=== PATIENT | female | born 1950 | race Caucasian/White ===

== ENCOUNTER 2017-10-07 15:43 | Inpatient (IN) | payer MEDICARE ==
[2017-10-07] MEDS ORDERED: Magnesium Sulfate 2 GM/100 ML BAG ONE (16:08)
[2017-10-07 16:10] LABS: #Eosinphils 0.1 thou/uL (0.0-0.7); #Lymphocytes 1.6 thou/uL (1.20-3.40); #Monocytes 0.6 thou/uL (0.11-0.59); #Neutrophils 6.3 thou/uL (1.40-6.50); %Basophils 0.4 % (0.0-1.0); %Eosinophils 0.9 % (0.0-10.0); %Lymphocytes 18.9 % (21.0-51.0); %Monocytes 6.8 % (0.0-10.0); Hemoglobin 13.9 g/dL (12.0-16.0); Mean Corpuscular HGB CONC 33.5 g/dL (32.0-36.0); Mean Corpuscular Hemoglobin 32.9 pg (27.0-31.0); Mean Corpuscular Volume 98.3 fl (81.0-99.0); Mean Platelet Volume 8.7 fL (7.4-10.4); Platelet Count 208 thou/uL (130-400); RBC Distribution Width 12.9 % (11.5-14.5); Red Blood Cell (RBC) Count 4.23 mill/uL (4.20-5.40); White Blood Cell (WBC) Count 8.6 thou/uL (4.8-10.8)
[2017-10-07] MEDS ORDERED: Diltiazem 125 MG/25 ML ONE (16:18)
--- NOTE | 2017-10-07 16:25 | RAD ---
AP VIEW CHEST: 10/07/17 HISTORY: Dyspnea. AP view chest is obtained on 10/07/17. Comparison made to previous exam from earlier in the day on 10/07/17. AP view chest demonstrates EKG leads seen over the chest. Cardiomegaly is seen. Pulmonary vascular co ngestion is seen. There is blunting of the left costophrenic angle compatible with a small left sided pleural effusion. IMPRESSION: Cardiomegaly and small left sided pleural effusion. POS: [facility]
[2017-10-07] MEDS ORDERED: Diltiazem HCl 125 MG, Admixture Fee 1 EACH in Sodium Chloride 0.9% 100 ML IVPB SCH (16:30)
[2017-10-07 16:32] LABS: ALT (SGPT) 39 U/L (8-55); AST (SGOT) 42 U/L (5-34); Alkaline Phosphatase 52 U/L (40-150); Anion Gap 13 mmol/L (10-20); BUN (Urea Nitrogen) 27 mg/dL (9.8-20.1); Bilirubin, Total 1.9 mg/dL (0.2-1.2); CK (CPK) 171 U/L (29-168); Calc. Creatinine Clearance 0 mL/min (70-130); Calcium 9.2 mg/dL (7.8-10.44); Carbon Dioxide 24 mmol/L (23-31); Chloride 107 mmol/L (98-107); Estimated GFR-MDRD 73; Globulin 2.2 g/dL (2.4-3.5); Glucose 123 mg/dL (80-115); Protein, Total 6.2 g/dL (6.0-8.3); Sodium 140 mmol/L (136-145)
[2017-10-07 16:37] LABS: CKMB 4.8 ng/mL (0-6.6); Troponin I Less than 0.010 ng/mL (< 0.028)
[2017-10-07 16:50] LABS: Free T4 (Free Thyroxine) 1.51 ng/dL (0.70-1.48); Thyroid Stimulating Hormone 1.9224 uIU/mL (0.35-4.94)
[2017-10-07 17:42] LABS: Bilirubin Negative (Negative); Blood, Urine Trace (Negative); Clarity CLEAR (Clear); Glucose, Urine (Dipstick) Negative (Negative); Leukocyte Negative (Negative); Nitrite Negative (Negative); Protein, Urine (Dipstick) 30 mg/dL (Neg-Trace); Specific Gravity, Urine 1.019 (1.002-1.036); Urobilinogen 0.2 mg/dL (0.2-1.0)
[2017-10-07 17:45] LABS: Bacteria/HPF None Seen HPF (None Seen); Hyaline Casts/LPF 0-3 HYALINE CAST LPF (0-3 Hyaline); Pathc Cast-AUWi Flag 0.72 (0-2.49); RBC/HPF 0-3 HPF (0-3); Squamous Epithelial 0-3 HPF (0-3); WBC/HPF 0-3 HPF (0-3)
[2017-10-07 17:56] LABS: Amphetamine Not Detected (NotDetected); Barbiturates Screen Not Detected (NotDetected); Benzodiazepine Screen Not Detected (NotDetected); Cocaine Metabolite Screen Not Detected (NotDetected); Medtox Control Line Valid? VALID (VALID); Medtox Reader # READER 4; Methadone Not Detected (NotDetected); Methamphetamine Not Detected (NotDetected); Opiate Screen Not Detected (NotDetected); Oxycodone Screen Not Detected (NotDetected); Phencyclidine (PCP) Not Detected (NotDetected); THC/Cannabinoid Screen Not Detected (NotDetected); Tricyclic Screen Not Detected (NotDetected)
[2017-10-07] MEDS ORDERED: Enoxaparin Sodium 80 MG/0.8 ML SYRINGE ONE (19:33)
[2017-10-07] MEDS ORDERED: HYDROcodone/Acetaminophen 10/325 mg Tablet PO PRN (19:59)
[2017-10-07] MEDS ORDERED: HYDROcodone/Acetaminophen 5/325 mg Tablet PO PRN (20:55)
[2017-10-07] MEDS ORDERED: Acetaminophen 325 MG TAB PO PRN (20:55)
[2017-10-07 21:06] VITALS: BMI 23.3
[2017-10-07] MEDS: Sodium Chloride 0.9% 1,000 ML IV SCH (22:00)
[2017-10-07] MEDS: Aspirin 81 mg Enteric Coated Tablet PO SCH (22:01)
[2017-10-07] MEDS: Famotidine 20 MG TAB PO SCH (22:01)
--- NOTE | 2017-10-08 01:54 | HP ---
DATE OF ADMISSION: 10/07/2017 CHIEF COMPLAINT: Shortness of breath. HISTORY OF PRESENT ILLNESS: This is a 67-year-old white female who has known history of COPD, histor y of chronic atrial fibrillation, history of hypothyroidism. She came into the hospital because over the past 2 days, she has been having shortness of breath on exertion and it spontaneously goes away. She came into the ER for further evaluation and she had an EKG done which was showing a heart rate of 122. It went up to 150, so the patient was given a Cardizem bolus again, but the heart rate remai price elevated. She denied having any chest pain, no nausea, no vomiting, no diarrhea, no abdominal pa in. She denies having any palpitations. She sees an confectionery maker in her area who has recently di d a blood work for hypothyroidism and today she got her blood work report was slightly elevated. Patient is seen in the ER today, she was alert and oriented, did not appear to be any acute distress. She was sitting on the bed with no acute distress at this time. PAST MEDICAL HISTORY: 1. COPD. 2. Childhood asthma. 3. Chronic atrial fibrillation. 4. Hypothyroidism. 5. Hypertension. 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 SOCIAL HISTORY: Patient is not a known smoker. She does drink alcohol occasionally. She had a Mar avtar yesterday, but was one glass. Otherwise, she lives on her own, has a maid lives with her. FAMILY HISTORY: No significant family history of coronary artery disease, but patient's family does have hypothyroidism runs in the family and hypertension, but otherwise no cancers. REVIEW OF SYSTEMS: All 12 systems are reviewed with the patient thoroughly and found to be negative at this time. The following complete review of systems was negative, unless otherwise mentioned in t he HPI or below: Constitutional: Weight loss or gain, sense of well-being, ability to conduct usual activities, exercise tolerance. Skin/Breast: Rash, itching, changes in hair growth or loss, nail c hanges, breast lumps, tenderness, swelling, nipple discharge. Eyes: Vision, double vision, tearing, blind spots, pain. ENT/Mouth: Headaches (location, time of onset, duration, precipitating factors) , vertigo, lightheadedness, injury. Vision, double vision, tearing, blind spots, pain, nose bleeding , colds, obstruction, discharge, dental difficulties, gingival bleeding, dentures, neck stiffness, pa in, tenderness, masses in thyroid or other areas. Cardiovascular: Precordial pain, substernal distr ess, palpitations, syncope, dyspnea on exertion, orthopnea, nocturnal paroxysmal dyspnea, edema, cyan osis, hypertension, heart murmurs, varicosities, phlebitis, claudication. Respiratory: Pain, shortn ess of breath, wheezing, stridor, cough, hemoptysis, fever or night sweats. Gastrointestinal: Poor appetite, dysphagia, indigestion, abdominal pain, heartburn, eructation, nausea, vomiting, hematemesi s, jaundice, constipation, or diarrhea, abnormal stools (naif-colored, tarry, bloody, greasy, foul sm elling), flatulence, hemorrhoids, recent changes in bowel habits. Genitourinary: Urgency, frequency , dysuria, nocturia, hematuria, polyuria, oliguria, unusual (or change in) color of urine, stones, he sitancy, change in size of stream, dribbling, acute retention or incontinence, libido, potency. Musc uloskeletal: Pain, swelling, redness or heat of muscles or joints, limitation, of motion, muscular w eakness, atrophy, cramps. Neurologic/Psychiatric: Convulsions, paralyses, tremor, incoordination, p arasthesias, difficulties with memory of speech, sensory or motor disturbances, or muscular coordinat ion (ataxia, tremor), emotional problems, anxiety, depression, previous psychiatric care, unusual per ceptions, hallucinations. Allergy/Immunologic: Skin rash, anemia, bleeding tendency, polydipsia, polyuria, intolerance to heat or cold. PHYSICAL EXAMINATION: VITAL SIGNS: Blood pressures of 130/88, heart rate is 120, respiratory rate is 18, saturations 98% o n room air. GENERAL: The patient is moderately built and moderately nourished. She does not appear to be in any acute distress. She was alert and oriented x3. HEENT: Atraumatic, normocephalic, PERRLA. Extraocular movements were intact. Oral mucosa is pink a nd moist. CARDIOVASCULAR: S1, S2 normal. No murmurs, rubs or gallops. LUNGS: Bilateral air entry was equal. No wheezing, no crackles. ABDOMEN: Soft, nontender, no guarding, no rebound tenderness. Bowel sounds normal. MUSCULOSKELETAL: No calf tenderness. No pedal edema, no joint tenderness, no joint swelling. SKIN: No cyanosis, no erythema, no rash, no pallor. NEUROLOGIC: Cranial nerve examination II-XII are intact. No focal deficits were noted. PSYCHIATRIC: No signs of suicidal ideation. No signs of kiara was noted. LABORATORY DATA: WBC is 8.6, hemoglobin 13.9, hematocrit is 41.6, platelets 208. Sodium is 140, pot assium 4.0, chloride is 107, bicarbonate is 24, BUN is 27, creatinine 0.78, blood glucose 123, free T 4 is slightly elevated to 1.51. ASSESSMENT AND PLAN: 1. Acute atrial fibrillation with rapid ventricular rate. 2. state. 3. History of chronic obstructive pulmonary disease, no exacerbation. 4. Moderate dehydration. 5. Hypertension. 6. Alcohol use. PLAN: 1. Plan is to admit this patient to telemetry and she will be continued on the Cardizem drip which s he has been started in the ER. ER physician consulted Dr. Steven who planned to see the patient in the morning. We will get a 2D echo in the morning. We will closely monitor this patient and she will a lso receive Lovenox dose 1 mg/kg b.i.d. 2. Patient has evidence of hypothyroidism which is pretty mild with mildly elevated T4. We will hol d off on the levothyroxine at this time and advised the patient to follow up with her confectionery maker reduce the dose. 3. Patient has a history of COPD, no evidence of any exacerbation. 4. Patient has a history of alcohol. She does drink alcohol every day, but she says on a limited qu antity. She does have some mildly elevated total bilirubin and AST 42, ALT 39, suggestive of alcohol ic liver disease. We will closely monitor for any alcohol withdrawals if needed. We will start the patient on thiamine. 5. DVT prophylaxis with Lovenox. I spent 75 minutes with this patient.
[2017-10-08 05:23] LABS: #Eosinphils 0.1 thou/uL (0.0-0.7); #Lymphocytes 1.5 thou/uL (1.20-3.40); #Monocytes 0.5 thou/uL (0.11-0.59); #Neutrophils 3.6 thou/uL (1.40-6.50); %Basophils 0.5 % (0.0-1.0); %Eosinophils 1.8 % (0.0-10.0); %Lymphocytes 26.9 % (21.0-51.0); %Monocytes 8.8 % (0.0-10.0); %Neutrophils 62.1 % (42.0-75.0); Hemoglobin 11.3 g/dL (12.0-16.0); Mean Corpuscular HGB CONC 32.2 g/dL (32.0-36.0); Mean Corpuscular Hemoglobin 31.8 pg (27.0-31.0); Mean Platelet Volume 8.5 fL (7.4-10.4); Platelet Count 153 thou/uL (130-400); RBC Distribution Width 12.9 % (11.5-14.5); Red Blood Cell (RBC) Count 3.56 mill/uL (4.20-5.40); White Blood Cell (WBC) Count 5.7 thou/uL (4.8-10.8)
[2017-10-08 05:37] LABS: Anion Gap 7 mmol/L (10-20); BUN (Urea Nitrogen) 20 mg/dL (9.8-20.1); Calc. Creatinine Clearance 78 mL/min (70-130); Calcium 8.1 mg/dL (7.8-10.44); Carbon Dioxide 27 mmol/L (23-31); Chloride 109 mmol/L (98-107); Estimated GFR-MDRD 81; Glucose 105 mg/dL (80-115); Potassium 3.5 mmol/L (3.5-5.1); Sodium 139 mmol/L (136-145)
[2017-10-08] MEDS: Spironolactone 25 MG TAB PO SCH (09:47)
[2017-10-08] MEDS: Folic Acid 1 MG TAB PO SCH (09:48)
[2017-10-08] MEDS: Amlodipine 10 MG TAB PO SCH (09:48)
[2017-10-08] MEDS: Allopurinol 100 MG TAB PO SCH (09:48)
[2017-10-08] MEDS: Famotidine 20 MG TAB PO SCH ×2 (09:48→21:28)
[2017-10-08] MEDS: Nebivolol HCl 5 MG TAB PO SCH (09:48)
[2017-10-08] MEDS ORDERED: Enoxaparin Sodium 60 MG/0.6 ML SYRINGE SC SCH (11:30)
[2017-10-08] MEDS ORDERED: Diltiazem HCl 125 MG, Admixture Fee 1 EACH in Sodium Chloride 0.9% 100 ML IVPB SCH (13:54)
[2017-10-08] MEDS: Sodium Chloride 0.9% 1,000 ML IV SCH (16:11)
--- NOTE | 2017-10-08 20:56 | CON ---
DATE OF CONSULTATION: 10/08/2017 PRIMARY CARE DOCTOR: Trav Royal M.D. PRIMARY LADLE REPAIRMAN: Dr. Jennifer Steven. REFERRING DOCTOR: Xavi Fabian M.D. REASON FOR CARDIOLOGY CONSULT: Atrial flutter with RVR and hypothyroidism. HISTORY OF PRESENT ILLNESS: Ms. Anne is a 67-year-old female with significant history o f COPD, high blood pressure and premature ventricular contraction of the high burden and also mitral valve regurgitation. The patient started having shortness of breath since the last week and the last couple of days, the patient's shortness of breath became very worsen and accompanied with cough and severe reflux. The patient started feeling more weak and she noticed that she had more fluid retenti on in her bilateral lower extremities, and she gained more than 10 pounds over the few days. The pat ient went to [facility] yesterday and her EKG revealed the patient is having atrial flutter with rapid ventricular response and the patient was transferred to the emergency department for the f urther evaluation and treatment. The patient has followed up with electrophysiology in 2015 for sameer ature ventricular contraction of the high burden and the patient was recommended to have ablation at this time. The patient continued to postpone at that time because she did not have any symptoms. To day, the patient continued having shortness of breath and mild air hunger when she lays flat and also mild fatigue. The patient denies dizziness, lightheadedness, or chest pain or discomfort in her karel st or fluttering or palpitations in her chest or any other cardiac complaints. The patient has echocardiogram done in April 2017, which shows EF 55%, moderate left atrium enlarg ement, moderate mitral valve regurgitation, mild to moderate pulmonary insufficiency and mild tricusp id regurgitation. The patient has a history of chronic COPD. The patient is to follow up with Dr. Israel Lewis. The patient had a stress test done in 2008, which shows normal EF. PAST MEDICAL HISTORY: 1. Hypertension. 2. Hypothyroidism. 3. Insomnia. 4. Mitral valve regurgitation. 5. Premature ventricular contraction with high burden. 6. Kidney stone. She is taking allopurinol to keep the uric acid lower. PAST SURGICAL HISTORY: Right hand fracture in 2012, right cataract surgery in 2016, squamous cell re moved from her mouth in 01/2017. FAMILY HISTORY: The patient's father has a significant history of hypertension and CVA. The patient 's mother has a history of Parkinson's and emphysema. The patient's sister has a history of hyperten rosendo. The patient's grandfather in the maternal side has a history of stroke. The patient's grandmo ther in the maternal side has history of emphysema and asthma. The patient's grandfather in the logan rnal side due to [place]. SOCIAL HISTORY: The patient continued to be keep active daily. She is single, but she has a roommat e with. She enjoyed one beer a day for 4 times a week. She does not smoke or illicit drugs. She qu it carbonate water a couple weeks ago due to severe acid reflux. She never smoked before. However, due to chain smoke of the parents, she had exposed to the second-hand smoking. ALLERGIES: She is allergic to SULFA and she is allergic to DOXYCYCLINE, which caused severe sensitiv ities. HOME MEDICATIONS: 1. Spironolactone 50 mg once a day. 2. Allopurinol 100 mg 1 tablet twice a day. 3. Aspirin 81 mg once a day. 4. Synthroid 88 mcg from Monday through Monday and Synthroid 100 mcg, Monday and Monday. 5. Glucosamine 1500 mg once a day. 6. Zyrtec 10 mg once a week. 7. Vitamin D2 of 50,000 once a week. 8. Animi-3 with Vitamin D 1 tablet twice a week. 9. Amlodipine 5 mg once a day. 10. Coreg 12.5 mg 1/2 tablet twice a day. 11. Singulair 10 mg once a day. 12. Prilosec once a day. REVIEW OF SYSTEMS: Complete review of systems otherwise mentioned in the HPI or below. Constitution al: She gained 10 pounds over the couple of days when she started having shortness of breath, but ne gative for sense of well being, ability to conduct usual activities. Skin: Rash, itching, breast santy mp, tenderness, swelling or nipple discharge. Eyes: Vision change, double vision, tearing, blind sp ots, pain. HEENT: Headache, vertigo, lightheadedness, nose bleeding, cold, obstruction, dental diff iculty, neck stiffness, pain, mass and tenderness in thyroid or other areas. Cardiovascular: Precor dial pain, substernal distress, nocturnal dyspnea, orthopnea, cyanosis. She noticed mild edema in th e bilateral lower extremities within the last couple of days. Respiratory: Positive for worsened sh ortness of breath, but negative for wheezing, stridor, cough, hemoptysis. Genitourinary: Poor appet ite, dysphagia, indigestion, abdominal pain, constipation, diarrhea, abnormal stool. Genitourinary: Urgency, frequency, dyspnea, nocturia, hematuria, polyuria, unusual color urine. Musculoskeletal: Pain, swelling, redness or heat of the muscle or joint. Neurologic: Conversion seizure, paralysis, tremor. Psychiatric: Emotional problem, anxiety, depression, previous psychiatric care. PHYSICAL EXAMINATION: VITAL SIGNS: Blood pressure 113/81, pulse is 110-140s with atrial fibrillation/atrial flutter, respi ratory rate is 16 with O2 sats 97% with room air, temperature 98.9. GENERAL: Well-developed, well-nourished without any acute distress. HEAD: Normocephalic, atraumatic. EYES: Extraocular muscle movement intact. ENT: Oral and nasal mucosa are moist without lesion. NECK: No JVD, supple and normal range of motion. LUNGS: Clear to auscultate bilaterally, but diminished at the bases. CARDIOVASCULAR: Irregularly irregular. Presence of murmur in the left mid sternal border. There ar e 2+ pulses in bilateral dorsal pedis, posterior tibial, and popliteal. There is no edema present at this time. ABDOMEN: Nondistended, soft and nontender or mass to palpate, and bowel sounds are present. MUSCULOSKELETAL: The patient able to move all extremities. SKIN: Warm and dry. No rash, lesion or bruise noted. NEUROLOGIC: Alert, oriented x4, nonfocal. PSYCHIATRIC: Mood and affect are normal. IMAGING: EKG: A 12-lead EKG in the ER shows atrial fibrillation and atrial flutter, heart rates goi ng up to the 150 this moment and telemetry record showing atrial fibrillation with heart rate of 100 to 140 with and a chest x-ray shows cardiomegaly and a small left side pleural effusion. LABORATORY DATA: WBC 5.7, hemoglobin 11.3, hematocrit of 35.2, platelets 153. Chemistry: Sodium 13 9, potassium 3.5, BUN 20, creatinine 0.72 and TSH 1.9224, free T4 1.51. ASSESSMENT AND PLAN: 1. Atrial fibrillation/atrial flutter with rapid ventricular response with significant symptoms of s hortness of breath, chronic fatigue and edema in the lower extremities. We like to order electrophys iologist consult today and possible ablation tomorrow. The patient is going to be n.p.o. after midni ght tonight for possible ablation. We might like to start diltiazem if patient not able to tolerate increase in dose of the diltiazem for heart rate management. 2. Hypertension. Her blood pressures have been stable with current medication. We like to continue and adjust as appropriate. 3. Chronic obstructive pulmonary disease. The patient's respiratory status is stable with room air. 4. Mitral valve regurgitation. Echo in 2017 shows some moderate mitral valve regurgitation. At thi s time, the patient is not going to have echocardiogram, but we like to continue due to the patient's symptoms at this moment. 5. Hypothyroidism. The patient's TSH within normal range; however, patient's free T4 is elevated to day, which shows hypothyroidism. Synthroid is on hold at this moment, which is managed by patient's primary care doctor. Thank you very much for allowing the Cardiology Service to participate in the care of this patient. We will follow along with the patient care team and make further recommendations as appropriate.
[2017-10-08] MEDS: Enoxaparin Sodium 60 MG/0.6 ML SYRINGE SC SCH (21:27)
[2017-10-08] MEDS: Aspirin 81 mg Enteric Coated Tablet PO SCH (21:28)
[2017-10-09] MEDS ORDERED: ISOVUE-370 76%-LOCM 1 ML ONE (06:43)
--- NOTE | 2017-10-09 08:09 | ADD-CON ---
This is an addendum to the note already dictated by the nurse practitioner, Brionna. DATE OF CONSULTATION: 10/08/2017 DATE OF ADMISSION: 10/07/2017 INDICATION FOR CONSULTATION: A 67-year-old female with episodes of intermittent atrial fibrillation/ flutter. She, for the last several days, has not been feeling well. She has been complaining of quinn e shortness of breath and some lower extremity edema. She notes some palpitations, rapid heart rate. She presented to the emergency room and was found to be in, what appeared to be, atrial fibrillatio n or flutter with a rapid heart rate. She was placed on IV diltiazem, and the rate is under much bet ter control at this time. She had no complaints of chest pain. She had no EKG changes that would in dicate ischemia. She has had a history of this in the past and has actually been seen by Electrophys iology for evaluation. Previously, we opted to treat her medically, but at this time, it may be jessa moore to proceed now with the electrophysiological evaluation again and consider an ablation of her a trial fibrillation/flutter. She had no chest pain otherwise. She does have some shortness of breath and has not been feeling well. HPI is, otherwise, unremarkable. For her past medical history, social history, family history, and review of systems, please refer to the notes already dictated by the nurse practitioner. PHYSICAL EXAMINATION: GENERAL: Reveals a well-developed, well-nourished female, who is in no acute distress at this time. VITAL SIGNS: Blood pressure 113/81, heart rate is anywhere between 70s-116 and shows atrial fibrilla tion in the monitor at this time. Earlier appeared to be flutter. O2 saturation 92%. She is afebri le, respiratory rate 16. HEENT EXAM: Shows head to be normocephalic, atraumatic. Carotid pulses are present. There are no b ruits. CHEST: Clear to auscultation without rales, rhonchi, or wheezing. CARDIOVASCULAR: Exam reveals an irregularly, irregular rhythm, sometimes tachycardic, otherwise ther e are no significant murmurs, heaves, thrills, bruits, or rubs. ABDOMEN: Soft and nontender. EXTREMITIES: Show no clubbing or cyanosis. She has minimal left lower extremity ankle edema. NEUROLOGIC: The patient appears to be intact. SKIN: Warm and dry. IMPRESSION: Atrial fibrillation, rapid ventricular response, which appear to be actually atrial flut ter also at times. We will ask poultry and fish butcher to see her for possible ablation. Otherwise, we will continue her medications at this time, which include diltiazem. We will add Lovenox to decrease the risk of embolic phenomenon since she has been most likely in this atrial fibrillation for at ava a week now. We will continue her aspirin 81 mg a day. We will continue with Bystolic as well as her other home medications, may be able to decrease the dose of the amlodipine at this time since the blood pressure is well controlled on decreased dose, but she has been taking the amlodipine and appe ars to be stable at this dose. We would be more than happy to continue to follow the patient with yo u, but we will request electrophysiological consultation.
--- NOTE | 2017-10-09 10:13 | PDOC.CTH ---
Cardiology Progress Note - Subjective Pt. seen and eval. no new complaints but still SOB. No other new symptoms or complaints. - Objective Vital Signs Temp Pulse Resp BP Pulse Ox 10/09/17 07:30 97.9 F 104 H 21 H 93 L 10/09/17 04:00 97.9 F 55 L 22 H 102/61 10/09/17 00:00 125 H 18 96/68 98 Weight 148 lb 10/08/17 10/09/17 10/10/17 06:59 06:59 06:59 Intake Total 1275 Output Total 800 Balance 475 - Physical Examination General/Neuro: alert & oriented x3 Neck: no JVD present Lungs: CTA, unlabored respirations Heart: other: (irreg./irreg.) Abdomen: NT/ND, soft - Labs Result Diagrams: 10/08/17 05:09 10/08/17 05:09 Troponin/CKMB CK-MB (CK-2) 4.8 ng/mL (0-6.6) 10/07/17 15:55 Troponin I Less than 0.010 ng/mL (< 0.028) 10/07/17 15:55 - Assessment/Plan 1. Afib. with RVR. Discussed with EP. Advise TEENA/cardioversion. Pt. has been on ASA for years and lovenox since admission. 2. COPD: asthma as a child. Sees pulmonology. Still feels SOB. May ask pulmonary to see her here. Could start nebulizer treatments. 3. HTN: reasonably well controlled. 4. GERD, may be contributing to cough and SOB. I have exp[lained the TEENA procedure and riskd to the pt. plan for this AM.
[2017-10-09] MEDS ORDERED: PROPOFOL 200 MG/20 ML VIAL ONE (10:43)
[2017-10-09] MEDS ORDERED: Lidocaine 1% PF 5 ML VIAL ONE ×2 (10:43→10:52)
[2017-10-09] MEDS ORDERED: PROPOFOL 0 ML ONE (10:51)
[2017-10-09] MEDS ORDERED: Flecainide 50 MG TAB PO SCH ×2 (11:00→12:00)
[2017-10-09] MEDS ORDERED: PROPOFOL 20 ML ONE (11:06)
[2017-10-09] MEDS: Amlodipine 10 MG TAB PO SCH (13:18)
[2017-10-09] MEDS: Folic Acid 1 MG TAB PO SCH (13:18)
[2017-10-09] MEDS: Enoxaparin Sodium 60 MG/0.6 ML SYRINGE SC SCH ×2 (13:18→20:45)
[2017-10-09] MEDS: Famotidine 20 MG TAB PO SCH ×2 (13:18→20:47)
[2017-10-09] MEDS: Allopurinol 100 MG TAB PO SCH (13:18)
[2017-10-09] MEDS: Spironolactone 25 MG TAB PO SCH (13:19)
[2017-10-09] MEDS: Nebivolol HCl 5 MG TAB PO SCH (13:20)
--- NOTE | 2017-10-09 13:53 | PDOC.PN ---
- Subjective Encounter Start Date: 10/08/17 Encounter Start Time: 10:00 Patient is seen today, alert and oriented. She continuos to have SOB, No chest pain. - Objective Resuscitation Status: Resuscitation Status FULL:Full Resuscitation MAR Reviewed: Yes Vital Signs & Weight: Vital Signs (12 hours) Temp Pulse Pulse Resp BP BP Pulse Ox 10/09/17 08:02 89 115/88 10/09/17 07:30 97.9 F 104 H 21 H 93 L 10/09/17 04:00 97.9 F 55 L 22 H 102/61 Weight Weight 148 lb I&O: 10/08/17 10/09/17 10/10/17 06:59 06:59 06:59 Intake Total 1275 Output Total 800 Balance 475 Result Diagrams: 10/08/17 05:09 10/08/17 05:09 Radiology Reviewed by me: Yes Phys Exam - Physical Examination HEENT: PERRLA, moist MMs Neck: no nodes, no JVD Respiratory: no wheezing, no rales Cardiovascular: RRR, no significant murmur Gastrointestinal: soft, non-tender Musculoskeletal: no edema, pulses present Lymphatic: no nodes Psychiatric: normal affect Dx/Plan (1) Atrial fibrillation with controlled ventricular response Code(s): I48.91 - UNSPECIFIED ATRIAL FIBRILLATION Status: Acute Comment: PT is on Cardizem Drip Now 5mg/min, rate is controlled on the Drip, No anticoagulation (2) COPD (chronic obstructive pulmonary disease) Status: Acute Comment: No Exacerbation, Noted. Will continue to monitor. (3) HTN (hypertension) Code(s): I10 - ESSENTIAL (PRIMARY) HYPERTENSION Status: Acute Comment: Will continue to Monitor. Stable. (4) SOB (shortness of breath) on exertion Code(s): R06.02 - SHORTNESS OF BREATH Status: Acute Comment: Will mOnitor Closley likely from RVR, will check for PE if persistant. - Plan cont current plan of care, plan discussed w/ family, PT/OT, social science research assistant, respiratory therapy, incentive spirometry * . Review of Systems - Review of Systems Eyes: negative: Pain, Vision Change, Conjunctivae Inflammation, Eyelid Inflammation, Redness, Other ENT: negative: Ear Pain, Ear Discharge, Nose Pain, Nose Discharge, Nose Congestion, Mouth Pain, Mouth Swelling, Throat Pain, Throat Swelling, Other Respiratory: Shortness of Breath. negative: Cough, Dry, Hemoptysis, SOB with Excertion, Pleuritic Pain, Sputum, Wheezing Cardiovascular: negative: chest pain, palpitations, orthopnea, paroxysmal nocturnal dyspnea, edema, light headedness, other Genitourinary: negative: Dysuria, Frequency, Incontinence, Hematuria, Retention , Other Musculoskeletal: negative: Neck Pain, Shoulder Pain, Arm Pain, Back Pain, Hand Pain, Leg Pain, Foot Pain, Other - Medications/Allergies Allergies/Adverse Reactions: Allergies Allergy/AdvReac Type Severity Reaction Status Date / Time Sulfa (Sulfonamide Allergy Verified 10/19/12 18:56 Antibiotics) Medications: Current Medications Acetaminophen (Tylenol) 650 mg PO Q4H PRN PRN Reason: Headache/Fever or Pain Hydrocodone Bitart/Acetaminophen ([place] 10/325) 1 tab PO Q4HR PRN PRN Reason: Pain Hydrocodone Bitart/Acetaminophen ([place] 5/325) 1 tab PO Q4H PRN PRN Reason: Moderate Pain (4-6) Allopurinol (Zyloprim) 200 mg PO DAILY [facility] Last Admin: 10/09/17 13:18 Dose: Not Given Amlodipine Besylate (Norvasc) 10 mg PO DAILY [facility] Last Admin: 10/09/17 13:18 Dose: Not Given Aspirin (Ecotrin) 81 mg PO HS [facility] Last Admin: 10/08/17 21:28 Dose: 81 mg Enoxaparin Sodium (Lovenox) 60 mg SC 0900,2100 [facility] Last Admin: 10/09/17 13:18 Dose: Not Given Famotidine (Pepcid) 20 mg PO BID [facility] Last Admin: 10/09/17 13:18 Dose: Not Given Flecainide Acetate (Tambocor) 50 mg PO Q12HR [facility] Folic Acid (Folvite) 1 mg PO DAILY [facility] Last Admin: 10/09/17 13:18 Dose: Not Given Nebivolol (Bystolic) 5 mg PO DAILY [facility] Sodium Chloride (Flush - Normal Saline) 10 ml IVF Q12HR [facility] Last Admin: 10/08/17 21:28 Dose: Not Given Sodium Chloride (Flush - Normal Saline) 10 ml IVF PRN PRN PRN Reason: Saline Flush Spironolactone (Aldactone) 25 mg PO DAILY [facility] Last Admin: 10/09/17 13:19 Dose: Not Given Thiamine HCl (Thiamine) 100 mg PO DAILY [facility] Last Admin: 10/09/17 13:19 Dose: Not Given
--- NOTE | 2017-10-09 14:06 | PDOC.PN ---
- Subjective Encounter Start Date: 10/09/17 Encounter Start Time: 11:00 Patient is seen today, Cardioogy plan for TEENA and Cardioverstion. Alert and oriented. - Objective Resuscitation Status: Resuscitation Status FULL:Full Resuscitation MAR Reviewed: Yes Vital Signs & Weight: Vital Signs (12 hours) Temp Pulse Pulse Resp BP BP Pulse Ox 10/09/17 08:02 89 115/88 10/09/17 07:30 97.9 F 104 H 21 H 93 L 10/09/17 04:00 97.9 F 55 L 22 H 102/61 Weight Weight 148 lb I&O: 10/08/17 10/09/17 10/10/17 06:59 06:59 06:59 Intake Total 1275 Output Total 800 Balance 475 Result Diagrams: 10/08/17 05:09 10/08/17 05:09 Radiology Reviewed by me: Yes Phys Exam - Physical Examination HEENT: PERRLA, moist MMs Neck: no nodes, no JVD Respiratory: no wheezing, no rales Cardiovascular: RRR, no significant murmur Gastrointestinal: soft, non-tender Musculoskeletal: no edema Neurological: non-focal Lymphatic: no nodes Psychiatric: normal affect, A&O x 3 Dx/Plan (1) Atrial fibrillation with controlled ventricular response Code(s): I48.91 - UNSPECIFIED ATRIAL FIBRILLATION Status: Acute Comment: PT is on Cardizem Drip Now 5mg/min, rate is controlled on the Drip, No anticoagulation, planned for TEENA today and followed by Cardiovertion. (2) COPD (chronic obstructive pulmonary disease) Status: Acute Comment: No Exacerbation, Noted. Will continue to monitor. (3) HTN (hypertension) Code(s): I10 - ESSENTIAL (PRIMARY) HYPERTENSION Status: Acute Comment: Will continue to Monitor. Stable. (4) SOB (shortness of breath) on exertion Code(s): R06.02 - SHORTNESS OF BREATH Status: Acute Comment: Will mOnitor Closley likely from RVR, will check for PE if persistant. - Plan cont current plan of care, plan discussed w/ family, PT/OT, respiratory therapy , incentive spirometry, DVT proph w/lovenox * . Review of Systems - Review of Systems Eyes: negative: Pain, Vision Change, Conjunctivae Inflammation, Eyelid Inflammation, Redness, Other ENT: negative: Ear Pain, Ear Discharge, Nose Pain, Nose Discharge, Nose Congestion, Mouth Pain, Mouth Swelling, Throat Pain, Throat Swelling, Other Respiratory: negative: Cough, Dry, Shortness of Breath, Hemoptysis, SOB with Excertion, Pleuritic Pain, Sputum, Wheezing Cardiovascular: negative: chest pain, palpitations, orthopnea, paroxysmal nocturnal dyspnea, edema, light headedness, other Gastrointestinal: negative: Nausea, Vomiting, Abdominal Pain, Diarrhea, Constipation, Melena, Hematochezia, Other Musculoskeletal: negative: Neck Pain, Shoulder Pain, Arm Pain, Back Pain, Hand Pain, Leg Pain, Foot Pain, Other - Medications/Allergies Allergies/Adverse Reactions: Allergies Allergy/AdvReac Type Severity Reaction Status Date / Time Sulfa (Sulfonamide Allergy Verified 10/19/12 18:56 Antibiotics) Medications: Current Medications Acetaminophen (Tylenol) 650 mg PO Q4H PRN PRN Reason: Headache/Fever or Pain Hydrocodone Bitart/Acetaminophen ([place] 10/325) 1 tab PO Q4HR PRN PRN Reason: Pain Hydrocodone Bitart/Acetaminophen ([place] 5/325) 1 tab PO Q4H PRN PRN Reason: Moderate Pain (4-6) Allopurinol (Zyloprim) 200 mg PO DAILY [facility] Last Admin: 10/09/17 13:18 Dose: Not Given Amlodipine Besylate (Norvasc) 10 mg PO DAILY [facility] Last Admin: 10/09/17 13:18 Dose: Not Given Aspirin (Ecotrin) 81 mg PO HS [facility] Last Admin: 10/08/17 21:28 Dose: 81 mg Enoxaparin Sodium (Lovenox) 60 mg SC 0900,2100 [facility] Last Admin: 10/09/17 13:18 Dose: Not Given Famotidine (Pepcid) 20 mg PO BID [facility] Last Admin: 10/09/17 13:18 Dose: Not Given Flecainide Acetate (Tambocor) 50 mg PO Q12HR [facility] Folic Acid (Folvite) 1 mg PO DAILY [facility] Last Admin: 10/09/17 13:18 Dose: Not Given Nebivolol (Bystolic) 5 mg PO DAILY [facility] Sodium Chloride (Flush - Normal Saline) 10 ml IVF Q12HR [facility] Last Admin: 10/08/17 21:28 Dose: Not Given Sodium Chloride (Flush - Normal Saline) 10 ml IVF PRN PRN PRN Reason: Saline Flush Spironolactone (Aldactone) 25 mg PO DAILY [facility] Last Admin: 10/09/17 13:19 Dose: Not Given Thiamine HCl (Thiamine) 100 mg PO DAILY [facility] Last Admin: 10/09/17 13:19 Dose: Not Given
--- NOTE | 2017-10-09 14:24 | CON ---
DATE OF CONSULTATION: 10/09/2017 REASON FOR CONSULTATION: This is an electrophysiology consultation report. REFERRING PHYSICIAN: Dr. Steven I am seeing Ms. Anne at our [facility] telemetry floor as an electrophysiology economics consultant. Her problems are: 1. Newly found persisting atrial fibrillation. A. Rapid ventricular rate, now controlled with Cardizem. 2. History of mitral valve regurgitation. 3. Prior history of hypertension. 4. History of hypothyroidism. 5. History of frequent PVCs. ALLERGIES: SULFA and DOXYCYCLINE. MEDICATIONS AT HOME: Spironolactone, allopurinol, aspirin, Synthroid, glucosamine, Zyrtec b.i.d., vitamin D2, vitamin E, vitamin D, amlodipine 5 mg once a day, Coreg 12.5 mg 1/2 tablet twice a day, Singulair 10, Prilosec once a day. SUBJECTIVE: Ms. Anne was presenting with shortness of breath. She came to the ER and she was found to be in atrial fibrillation/flutter with rapid rates. She also noted some coughing which has worsened recently. She had mild lower extremity edema. She might have gained about 10 pounds over the last couple of days. Her symptoms not improved after admission with rate control. I was consulted for further management of her atrial fibrillation. REVIEW OF SYSTEMS: The rest of 12-point system otherwise unremarkable. No acute gastrointestinal, musculoskeletal, ear, nose, throat neuropsychiatric or genitourinary system complaints appreciated. PAST MEDICAL HISTORY: As above. SOCIAL HISTORY: The patient denies smoking, ETOH or drug use. FAMILY HISTORY: Noncontributory. OBJECTIVE: VITAL SIGNS: Blood pressure is 115/88, heart rate 104, respiration is 21, temperature 97.9 degrees Fahrenheit. GENERAL: Alert and oriented woman in no apparent distress. NECK: Supple. Jugular veins not distended. CHEST: Coarse without crackles. CARDIOVASCULAR: Heart sounds are irregularly irregular. S1 is variable, 1-6 holosystolic murmur is heard. No gallop appreciated. PMI is nonpalpable. ABDOMEN: Benign. Bowel sounds positive. EXTREMITIES: Lower extremity edema, no clubbing or cyanosis. LABORATORY DATA: White count 5.7, hemoglobin 9.3, platelet count is 153. Sodium 139, potassium 3.5, BUN is 20, creatinine 0.72. The TSH is 1.9-2. The troponin I is less than 0.. The chest x-ray at presentation showed cardiomegaly with small left-sided pleural effusion. The EKG reveals atrial fibrillation with rapid rates initially. Telemetry strips reviewed reveals no consent atrial flutter apparent, but variable atrial flutter/coarse fibrillation is seen throughout. ASSESSMENT AND PLAN: Ms. Anne is a pleasant 67-year-old woman with frequent ventricular and atrial ectopy in the past who has been seen by Dr. Montero in our practice a couple of years ago. At that time no sustained atrial fibrillation was documented. Now, she is persisting in atrial fibrillation. She had associated dyspnea and now she requires IV diltiazem. We discussed the nature of atrial fibrillation and potential treatment option. Eventually she will need anticoagulation even though FRANKLIN score is relatively low at 2, hence gender and age. I detailed the potential treatment options including cardioversion and antiarrhythmic agents as for ablation therapy as well in the future. She understands and will plan to perform a cardioversion with Dr. Steven. We also discussed pros and cons of a transesophageal echocardiogram. PLAN: 1. Cardioversion possible TEENA. Continue anticoagulation and diltiazem nfor rate control. 2. Consider antiarrhythmic agent, especially if recurrent atrial fibrillation is seen. 3. Outpatient followup for consideration of an ablation therapy. NATID
[2017-10-09] MEDS: Flecainide 50 MG TAB PO SCH (20:47)
[2017-10-09] MEDS: Aspirin 81 mg Enteric Coated Tablet PO SCH (20:47)
--- NOTE | 2017-10-09 21:22 | CT ---
CT ANGIOGRAM OF CHEST WITH IV CONTRAST AND 3D MIP RECONSTRUCTIONS: Date: 10/09/17 PROVIDED CLINICAL HISTORY: Shortness of breath. FINDINGS: There is no evidence for central or segmental pulmonary embolus. There is not sufficient contrast mat erial within the system arterial circulation for evaluation. The heart appears enlarged, primarily on the basis of left atrial and left ventricular enlargement. There are bilateral pleural effusions, moderate to large. There is bibasilar consolidation, left grea ter than right. The airway appears patent and of normal caliber. There is no evidence for pneumothora x. The visualized portions of the upper abdomen demonstrate no acute abnormality. Small bilateral kia al calculi and circumscribed hepatic hypodensities incompletely characterized on this examination but demonstrating an appearance typical for cysts noted. The osseous structures demonstrate no concerning lytic or blastic lesions. IMPRESSION: 1. No evidence for central or segmental pulmonary embolus. 2. Bibasilar lung consolidation may reflect aspiration pneumonitis or pneumonia. 3. Bilateral moderate to large pleural effusions. 4. Other findings as above. POS: [facility]
--- NOTE | 2017-10-09 22:02 | OP ---
ELECTRICAL CARDIOVERSION: This is a 67-year-old female with atrial fibrillation. She was advised to undergo a transesophageal e chocardiogram and electrocardioversion of atrial fibrillation. She was taken to the recovery area whe re she underwent short acting propofol. The patient then developed bronchospasm and had decreased O2 saturations as low as in the 60s with coughing. We were unable to do the transesophageal echocardiogr am. We then did a transthoracic echocardiogram. This did visualize the left atrial appendage, as wel l as left atrium, and we did not see any obvious clots or thrombus in the left atrial appendage. She had a flow of more than 5 meters per second in the left atrial appendage and it was felt to be safe to go ahead and proceed with electrical cardioversion while the patient was still sedated and using p ropofol. She underwent one attempt at 200 joules and was successfully converted back to normal sinus rhythm with occasional PACs and PVCs with a heart rate in the 80s. She tolerated the procedure well o therwise and there were no difficulty or complications. IMPRESSION: Atrial fibrillation, successfully converted back to normal sinus rhythm at one attempt at 200 joules.
--- NOTE | 2017-10-09 22:09 | CON ---
DATE OF CONSULTATION: 10/09/2017 SERVICE: Pulmonary Medicine. REASON FOR CONSULTATION: Respiratory failure. HISTORY OF PRESENT ILLNESS: The patient is a 67-year-old white female with past medical history significant for cough. It has been present for several years. She sees Dr. Roderick Phillips in the outpatient setting. She previously failed empiric therapy for her cough. She was treated for allergies. Never made a difference in her cough. She was ultimately lost to follow up. She did pulmonary function studies at 1-2 times. She was recommended to try an inhaler , but she never felt short of breath, wheeze, she did not feel the need to use it. 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 She denies any wheezing, fevers, chills, nausea or vomiting. Roughly 3 months ago, the patient had a friend who suggested that she treats and acid reflux symptoms and her cough essentially went away by 90%. Her cough then started coming back roughly 4 days prior to admission. It was also associated with shortness of breath, which was a new feature for her. Ultimately, she was found to have a tachyarrhythmia and was subsequently sent to the Emergency Department and admitted. She underwent a TEENA this morning. After sedation was initiated, the patient had a significant coughing fit. It was fairly violent. It was associated with a low blood pressure and hypoxemia. As such, the TEENA was aborted. The patient did undergo a cardioversion; however. Initially with successful, but based on what I hear, she is going back into fibrillation. She denies any shortness of breath, nausea, vomiting, fevers or chills. PAST MEDICAL HISTORY: 1. Atrial fibrillation. 2. Hypertension. 3. Hypothyroidism. 4. Childhood history of asthma that she grew out at the age of 6 and has never required any medication since. 5. Chronic obstructive pulmonary disease, possible, not currently on therapy because she is asymptomatic at baseline. 6. Gastroesophageal reflux disease. PAST SURGICAL HISTORY: 1. 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 2. Cardioversion. SOCIAL HISTORY: She had secondhand exposure. Both of her parents smoked when she was growing. She is a lifelong nonsmoker than a brief episode of marijuana when she was in her a teenager. She denies any illicit drugs. She never abuse any IV drugs. She rarely uses any alcohol. She has no exposure to chemicals, dust, asbestos or tuberculosis. FAMILY HISTORY: Noncontributory. ALLERGIES: SULFA. HOME MEDICATIONS: List of her inpatient medications were reviewed. A couple small updates were made REVIEW OF SYSTEMS: General, head, ears, eyes, nose, throat, cardiovascular, respiratory, GI, , musculoskeletal, neurologic and skin is negative except as mentioned in the HPI. PHYSICAL EXAMINATION: VITAL SIGNS: Afebrile, pulse 104, blood pressure 102/61, respirations 21, saturation 93% on room air. GENERAL: The patient is awake and alert, in no apparent distress. LUNGS: Decreased air entry. There is a slightly prolonged expiratory phase. I hear some very subtle dependent crackles. That being said, she is really not moving enough air to appreciate loud adventitious sounds. I do not appreciate rhonchi or wheezing presently. HEART: Normal rate. Irregular. ABDOMEN: Soft, nontender, nondistended. Bowel sounds are positive. MUSCULOSKELETAL: No cyanosis or clubbing. There is no pitting in the bilateral lower extremities. NEUROLOGIC: Grossly nonfocal. LABORATORY DATA: WBC 5.7, hemoglobin 11.3, platelets 153,000. Neutrophil count is 62%. Basic metabolic profile is unremarkable, T4 1.5, TSH 1.9. Cardiac enzymes are unremarkable. Total bilirubin 1.9. Liver function studies are otherwise essentially unremarkable. Urinalysis is unremarkable. Urine drug screen is negative. IMAGING: X-ray demonstrates an impressive cardiomegaly. She has got a small left-sided pleural effusion. Lungs are slightly hyperexpanded. There is a widened sotero angle, suggestive of left atrial enlargement and/or subcarinal lymphadenopathy. The pulmonary vessels are prominent. ASSESSMENT: 1. Atrial fibrillation with rapid ventricular response, status post ablation with recurrence of atrial fibrillation. 2. Chronic obstructive pulmonary disease, suspected. 3. Gastroesophageal reflux disease. 4. Chronic cough. 5. Obstructive sleep apnea, suspected DISCUSSION AND PLAN: We will give the patient 1 DuoNeb. After that, we will provide them on a p.r.n. basis. She already has an appointment scheduled with her elephant keeper, Dr. Roderick Phillips on 10/25/2017. I have encouraged her to keep that appointment. We discussed acid reflux precautions. We also talked about how this can contribute to her cough. I have directed her to discuss looking into sleep apnea with her elephant keeper. They will determine together whether or not it be most appropriate to pursue long-acting medication at that appointment, but previous attempts at using it, did not provide any useful symptom control. Bilirubin is elevated. I will check a repeat bilirubin tomorrow as well as check INR looking to see whether or not the synthetic function of her liver is acceptable. For the time being, I will continue to follow along with this patient. 70 minutes have been devoted to this patient in various activities. I personally reviewed all imaging studies and laboratory data noted within this document. For fifty percent of this time, I was interacting with the patient at the bedside or coordinating care with the care team. For the remainder of the time I was immediately available to the patient in the hospital unit. JAIRO
[2017-10-10] MEDS ORDERED: Diltiazem HCl 125 MG, Admixture Fee 1 EACH in Sodium Chloride 0.9% 100 ML IVPB SCH (05:15)
[2017-10-10 05:24] LABS: INR-International Normal Ratio 1.1; Prothrombin Time 14.2 SEC (12.0-14.7)
[2017-10-10 05:30] LABS: ALT (SGPT) 31 U/L (8-55); AST (SGOT) 27 U/L (5-34); Albumin 3.7 g/dL (3.4-4.8); Alkaline Phosphatase 45 U/L (40-150); Bilirubin, Direct 0.6 mg/dL (0.1-0.3); Bilirubin, Total 1.8 mg/dL (0.2-1.2); Protein, Total 5.6 g/dL (6.0-8.3)
[2017-10-10] MEDS: Allopurinol 100 MG TAB PO SCH (09:00)
[2017-10-10] MEDS: Flecainide 50 MG TAB PO SCH (09:00)
[2017-10-10] MEDS: Folic Acid 1 MG TAB PO SCH (09:01)
[2017-10-10] MEDS: Nebivolol HCl 5 MG TAB PO SCH (09:01)
[2017-10-10] MEDS: Amlodipine 10 MG TAB PO SCH (09:01)
[2017-10-10] MEDS: Spironolactone 25 MG TAB PO SCH (09:01)
[2017-10-10] MEDS: Famotidine 20 MG TAB PO SCH ×2 (09:01→20:18)
[2017-10-10] MEDS: Enoxaparin Sodium 60 MG/0.6 ML SYRINGE SC SCH ×2 (09:02→20:18)
[2017-10-10] MEDS ORDERED: Amlodipine 10 MG TAB PO SCH (10:29)
[2017-10-10] MEDS ORDERED: Potassium Chloride 20 MEQ TAB PO SCH (10:45)
[2017-10-10] MEDS ORDERED: Amlodipine 5 MG TAB PO SCH (10:45)
[2017-10-10] MEDS ORDERED: Furosemide 20 MG/2 ML VIAL SLOW IVP SCH (10:45)
--- NOTE | 2017-10-10 12:51 | PRG ---
DATE OF SERVICE: 10/10/2017 SERVICE: Pulmonary Medicine INTERVAL HISTORY: The patient is doing okay from a respiratory standpoint. Roughly 30 minutes after I saw her yesterday, she started developing a funny sensation in her belly again. She had increasin g hypoxemic respiratory failure. She was placed on 2 liters nasal cannula. This morning, she was se nt for a CT of the chest. She has no set specific complaints of nausea, vomiting, fevers or chills. As soon as she got her oxygen, her difficulty breathing melted away almost immediately. PHYSICAL EXAMINATION: VITAL SIGNS: Afebrile, pulse 119, blood pressure 109/89, respirations 16, saturation 98% on 2 liters nasal cannula. GENERAL: The patient is awake, alert, in no apparent distress. LUNGS: Decent air entry with a slightly prolonged expiratory phase. Dependent crackles are present. No wheezing or rhonchi are present. HEART: Tachycardic. Irregular. ABDOMEN: Soft, nontender, nondistended. Bowel sounds are positive. MUSCULOSKELETAL: No cyanosis or clubbing. There is no pitting in the bilateral lower extremities. NEUROLOGIC: Grossly nonfocal. LABORATORY DATA: INR 1.1. Total bilirubin 1.8, most of which is indirect. BNP 1897, TSH 1.9. IMAGING: CTA of the chest demonstrates no evidence of a pulmonary embolism. There is extensive grou nd glass opacifications that are centrally located. There is also some subtle findings consistent wi th interstitial edema. There are also bilateral pleural effusions. Massive 4 chamber dilation is id entified. The RV, however, seems to be the most preserved. ASSESSMENT: 1. Acute hypoxic respiratory failure. 2. Atrial fibrillation with rapid ventricular response, status post cardioversion with return to atr ial fibrillation. 3. Chronic obstructive pulmonary disease, suspected. 4. Acute on chronic diastolic heart failure. 5. Gastroesophageal reflux disease. 6. Obstructive sleep apnea, suspected. PLAN: We will give her a dose of Lasix. Pulmonary Critical Care will continue to follow along since she is having increasing respiratory difficulties. The patient is being planned for an ablation mov ing forward. Ultimately, when she leaves the hospital, she will need to follow up with her pulmonolo gist to discuss having a sleep study performed.
--- NOTE | 2017-10-10 14:31 | PDOC.PN ---
- Subjective Encounter Start Date: 10/10/17 Encounter Start Time: 11:00 Patient is seen today, alert and oriented. Contoinuos to have SOB, She was cardioverted but converted back to Afib today. - Objective Resuscitation Status: Resuscitation Status FULL:Full Resuscitation MAR Reviewed: Yes Vital Signs & Weight: Vital Signs (12 hours) Temp Pulse Resp BP BP BP Pulse Ox 10/10/17 11:20 98.0 F 96 20 105/72 97 10/10/17 09:01 119 H 116/79 10/10/17 08:40 97.8 F 119 H 16 98 10/10/17 07:20 97.8 F 95 16 109/89 98 10/10/17 04:00 98.3 F 111 H 18 116/78 98 Weight Weight 146 lb I&O: 10/09/17 10/10/17 10/11/17 06:59 06:59 06:59 Intake Total 480 340 Balance 480 340 Result Diagrams: 10/08/17 05:09 10/08/17 05:09 Radiology Reviewed by me: Yes Phys Exam - Physical Examination HEENT: PERRLA, moist MMs Neck: no nodes, no JVD Respiratory: wheezing present Cardiovascular: no significant murmur, irregular Gastrointestinal: soft, non-tender Musculoskeletal: no edema, pulses present Neurological: non-focal, normal sensation Lymphatic: no nodes Psychiatric: normal affect, A&O x 3 Dx/Plan (1) Acute exacerbation of CHF (congestive heart failure) Code(s): I50.9 - HEART FAILURE, UNSPECIFIED Status: Acute Comment: PT will be Started on IV lasix 20mg IV BID, will wait for Echo to determine EF, elevated BNp. (2) Atrial fibrillation with controlled ventricular response Code(s): I48.91 - UNSPECIFIED ATRIAL FIBRILLATION Status: Acute Comment: PT is on Cardizem Drip Now 5mg/min, rate is controlled on the Drip, Failed Cardiovertion, Now in Afib again. (3) COPD (chronic obstructive pulmonary disease) Status: Acute Comment: No Exacerbation, Noted. Will continue to monitor. (4) HTN (hypertension) Code(s): I10 - ESSENTIAL (PRIMARY) HYPERTENSION Status: Acute Comment: Will continue to Monitor. Stable. (5) SOB (shortness of breath) on exertion Code(s): R06.02 - SHORTNESS OF BREATH Status: Acute Comment: Will mOnitor Closley likely from RVR, PE is ruled out. - Plan cont current plan of care, plan discussed w/ family, continue antibiotics, PT/OT , respiratory therapy, incentive spirometry, DVT proph w/lovenox * . Review of Systems - Review of Systems Eyes: negative: Pain, Vision Change, Conjunctivae Inflammation, Eyelid Inflammation, Redness, Other ENT: negative: Ear Pain, Ear Discharge, Nose Pain, Nose Discharge, Nose Congestion, Mouth Pain, Mouth Swelling, Throat Pain, Throat Swelling, Other Respiratory: Cough, Shortness of Breath, SOB with Excertion, Wheezing Cardiovascular: negative: chest pain, palpitations, orthopnea, paroxysmal nocturnal dyspnea, edema, light headedness, other Gastrointestinal: negative: Nausea, Vomiting, Abdominal Pain, Diarrhea, Constipation, Melena, Hematochezia, Other Genitourinary: negative: Dysuria, Frequency, Incontinence, Hematuria, Retention , Other Musculoskeletal: negative: Neck Pain, Shoulder Pain, Arm Pain, Back Pain, Hand Pain, Leg Pain, Foot Pain, Other - Medications/Allergies Allergies/Adverse Reactions: Allergies Allergy/AdvReac Type Severity Reaction Status Date / Time Sulfa (Sulfonamide Allergy Verified 10/19/12 18:56 Antibiotics) Medications: Current Medications Acetaminophen (Tylenol) 650 mg PO Q4H PRN PRN Reason: Headache/Fever or Pain Hydrocodone Bitart/Acetaminophen ([place] 10/325) 1 tab PO Q4HR PRN PRN Reason: Pain Hydrocodone Bitart/Acetaminophen ([place] 5/325) 1 tab PO Q4H PRN PRN Reason: Moderate Pain (4-6) Albuterol/Ipratropium (Duoneb) 3 ml NEB [id number] PRN PRN Reason: SOB &/or Wheezing Allopurinol (Zyloprim) 200 mg PO DAILY [facility] Last Admin: 10/10/17 09:00 Dose: 200 mg Amlodipine Besylate (Norvasc) 5 mg PO DAILY [facility] Aspirin (Ecotrin) 81 mg PO HS [facility] Last Admin: 10/09/17 20:47 Dose: 81 mg Enoxaparin Sodium (Lovenox) 60 mg SC 0900,2100 [facility] Last Admin: 10/10/17 09:02 Dose: 60 mg Famotidine (Pepcid) 20 mg PO BID [facility] Last Admin: 10/10/17 09:01 Dose: 20 mg Flecainide Acetate (Tambocor) 50 mg PO Q12HR [facility] Last Admin: 10/10/17 09:00 Dose: 50 mg Folic Acid (Folvite) 1 mg PO DAILY [facility] Last Admin: 10/10/17 09:01 Dose: 1 mg Furosemide (Lasix) 20 mg SLOW IVP 0600,1400 [facility] Diltiazem HCl 125 mg/Miscellaneous Medication 1 each/ Sodium Chloride 125 mls @ 10 mls/hr IVPB INF [facility] PRN Reason: Protocol Last Admin: 10/10/17 05:46 Dose: 125 mls Nebivolol (Bystolic) 5 mg PO DAILY [facility] Last Admin: 10/10/17 09:01 Dose: 5 mg Sodium Chloride (Flush - Normal Saline) 10 ml IVF Q12HR [facility] Last Admin: 10/10/17 08:57 Dose: Not Given Sodium Chloride (Flush - Normal Saline) 10 ml IVF PRN PRN PRN Reason: Saline Flush Spironolactone (Aldactone) 25 mg PO DAILY [facility] Last Admin: 10/10/17 09:01 Dose: 25 mg Thiamine HCl (Thiamine) 100 mg PO DAILY [facility] Last Admin: 10/10/17 09:01 Dose: 100 mg
--- NOTE | 2017-10-10 14:58 | PDOC.CTH ---
Cardiology Progress Note - Subjective The pt seen and examined. No overnight events. Complains of SOB possible due to fluid overload. Cont. chronic fatigue. - Objective Vital Signs Temp Pulse Resp BP BP BP Pulse Ox 10/10/17 11:20 98.0 F 96 20 105/72 97 10/10/17 09:01 119 H 116/79 10/10/17 08:40 97.8 F 119 H 16 98 10/10/17 07:20 97.8 F 95 16 109/89 98 10/10/17 04:00 98.3 F 111 H 18 116/78 98 Weight 146 lb 10/09/17 10/10/17 10/11/17 06:59 06:59 06:59 Intake Total 480 340 Balance 480 340 - Physical Examination General/Neuro: alert & oriented x3 Neck: no JVD present Lungs: other: (coases and diminished at bases) Heart: other: (irregular) Abdomen: soft Extremities: other: (BLE edema) - Telemetry Telemetry Rhythm: AFib - Labs Result Diagrams: 10/08/17 05:09 10/08/17 05:09 Troponin/CKMB CK-MB (CK-2) 4.8 ng/mL (0-6.6) 10/07/17 15:55 Troponin I Less than 0.010 ng/mL (< 0.028) 10/07/17 15:55 - Assessment/Plan 1. Afib. with RVR with S/p TEENA/cardioversion - back to Afib this AM. On Diltiazem 10mg/h, ASA and lovenox since admission. Request for Dr Rose to re- eval the pt for further tx plan. 2. Acute CHF - mod BLE edema since this admission; BNP > 1800 today. Start Lasix 20mg IV BID by PCP from today. TTE was ordered today and the result is pending at this moment. 3. COPD: asthma as a child. Sees pulmonology. Still feels SOB. May ask pulmonary to see her here. Could start nebulizer treatments. 3. HTN: reasonably well controlled. 4. GERD, may be contributing to cough and SOB. MAR reviewed Review of Systems - Review of Systems Constitutional: reports: see HPI EENTM: reports: no symptoms reported Respiratory: reports: see HPI Cardiac (ROS): reports: no symptoms reported ABD/GI: reports: no symptoms reported : reports: no symptoms reported
[2017-10-10] MEDS: Furosemide 20 MG/2 ML VIAL SLOW IVP SCH (16:04)
[2017-10-10] MEDS: Aspirin 81 mg Enteric Coated Tablet PO SCH (20:18)
--- NOTE | 2017-10-10 23:48 | EKG ---
Test Reason : Blood Pressure : / mmHG Vent. Rate : 106 BPM Atrial Rate : 344 BPM P-R Int : 000 ms QRS Dur : 094 ms QT Int : 340 ms P-R-T Axes : 107 098 102 degrees QTc Int : 451 ms Suspect arm lead reversal, interpretation assumes no reversal Atrial flutter with variable A-V block with premature ventricular or aberrantly conducted complexes Rightward axis Pulmonary disease pattern Abnormal ECG When compared with ECG of 07-OCT-2017 18:59, (Unconfirmed) No significant change was found Confirmed by IRAM SAHU, SShayne ([id number]) on 10/10/2017 11:48:19 PM Referred By: ZECHARIAH Confirmed By:DR. Richard WALDEN MD
[2017-10-11] MEDS: Furosemide 20 MG/2 ML VIAL SLOW IVP SCH ×2 (05:48→16:05)
[2017-10-11 07:20] LABS: #Basophils 0.1 thou/uL (0.0-0.2); #Eosinphils 0.1 thou/uL (0.0-0.7); #Lymphocytes 1.4 thou/uL (1.20-3.40); #Monocytes 0.5 thou/uL (0.11-0.59); #Neutrophils 4.6 thou/uL (1.40-6.50); %Eosinophils 1.8 % (0.0-10.0); %Lymphocytes 20.9 % (21.0-51.0); %Monocytes 7.8 % (0.0-10.0); %Neutrophils 68.6 % (42.0-75.0); Hemoglobin 13.7 g/dL (12.0-16.0); Mean Corpuscular HGB CONC 33.2 g/dL (32.0-36.0); Mean Corpuscular Hemoglobin 33.3 pg (27.0-31.0); Mean Platelet Volume 8.9 fL (7.4-10.4); Platelet Count 173 thou/uL (130-400); RBC Distribution Width 12.9 % (11.5-14.5); Red Blood Cell (RBC) Count 4.12 mill/uL (4.20-5.40); White Blood Cell (WBC) Count 6.7 thou/uL (4.8-10.8)
[2017-10-11 07:43] LABS: Anion Gap 11 mmol/L (10-20); BUN (Urea Nitrogen) 13 mg/dL (9.8-20.1); Calc. Creatinine Clearance 66 mL/min (70-130); Calcium 9.1 mg/dL (7.8-10.44); Carbon Dioxide 33 mmol/L (23-31); Chloride 100 mmol/L (98-107); Estimated GFR-MDRD 67; Glucose 103 mg/dL (80-115); Potassium 3.6 mmol/L (3.5-5.1); Sodium 140 mmol/L (136-145)
[2017-10-11] MEDS: Allopurinol 100 MG TAB PO SCH (08:06)
[2017-10-11] MEDS: Enoxaparin Sodium 60 MG/0.6 ML SYRINGE SC SCH ×2 (08:06→20:59)
[2017-10-11] MEDS: Folic Acid 1 MG TAB PO SCH (08:07)
[2017-10-11] MEDS: Spironolactone 25 MG TAB PO SCH (08:07)
[2017-10-11] MEDS: Famotidine 20 MG TAB PO SCH ×2 (08:07→20:59)
[2017-10-11] MEDS: Nebivolol HCl 5 MG TAB PO SCH (08:07)
--- NOTE | 2017-10-11 08:22 | PRG ---
DATE OF SERVICE: 10/10/2017 SUBJECTIVE: Ms. Anne is doing well. She underwent cardioversion yesterday with TEENA. She initial ly went back into a sinus rhythm but unfortunately has since gone into atrial flutter with controlled ventricular rate where she states today. Overall, she reports feeling okay. She does have some mikey rtness of breath, some mild swelling in her legs, but otherwise does not have any new cardiac concern s or complaints today. She is having an echocardiogram performed today. OBJECTIVE: VITAL SIGNS: Temperature 98.0 degrees Fahrenheit, pulse 92, blood pressure 98/71, respirations 20, a nd 97% saturation on 2 liters nasal cannula. GENERAL: The patient is alert and oriented, in no acute distress. NECK: Supple without jugular venous distention. LUNGS: Coarse throughout and slightly diminished at the bases, but largely without wheezes, crackles , or rhonchi. HEART: Rate is irregular. PMI is nondisplaced. EXTREMITIES: Warm and dry to touch without clubbing or cyanosis, but with 1+ edema noted bilaterally to lower extremities. ABDOMEN: Soft and nontender without palpable masses. NEUROLOGIC: Grossly intact and nonfocal. TELEMETRY: Initially, patient was found to be in atrial fibrillation with variable ventricular rate. However, overnight patient appears to have organized into atrial flutter, possibly typical with rat es somewhat controlled in the 80-90 beats per minute range. However, sometimes reaching up to 120 be ats per minute. LABORATORY DATA: No new lab work or serology was drawn or completed today. ASSESSMENT AND PLAN: 1. Newly diagnosed persisting atrial arrhythmias including atrial fibrillation and multiple atrial f lutter circuits. Previously on Cardizem for the RVR. Now rates are better controlled, but blood pre ssure is somewhat low. 2. Shortness of breath, possibly fluid overload or heart failure. 3. History of mitral valve regurgitation. 4. CHADS-VASc score of 2 for gender and age. RECOMMENDATIONS: Ms. Anne appears to be doing fairly well, but continues to struggle with shortne ss of breath and weakness. She underwent attempted TEENA yesterday; however, TEENA was unable to be comp leted prior to cardioversion. Initially she did sustain a normal sinus rhythm and was started on fle cainide last night, organizing her atrial fibrillation into an atrial flutter. There is an echocardi ogram done today, but report is not yet available. Patient has some questionable COPD, but no histor y of tobacco use. Currently, she is on flecainide for antiarrhythmic therapy; however, we now see at rial fibrillation as well as multiple flutter circuits and she may have some heart failure as well. She may require amiodarone for antiarrhythmic therapy. Once she is stabilized medically, we have dis cussed with her the possibility of undergoing ablation for atrial fibrillation and atrial flutter sim ultaneously. In the meantime, we will continue to follow throughout her hospitalization and assist h er with arrhythmia management or any additional needs if they arise, as we await the results from the echocardiogram. Thank you for allowing us to participate in the care of this patient.
[2017-10-11] MEDS ORDERED: Potassium Chloride 20 MEQ TAB PO SCH (08:45)
[2017-10-11] MEDS ORDERED: Amlodipine 5 MG TAB PO SCH ×2 (09:00)
[2017-10-11] MEDS ORDERED: Amiodarone In Dextrose 200 ML IVPB SCH (09:00)
[2017-10-11] MEDS ORDERED: Amiodarone HCl 450 MG, Admixture Fee 1 EACH in Dextrose 5% in Water 250 ML IVPB SCH (09:15)
[2017-10-11] MEDS ORDERED: Amiodarone HCl 150 MG, Admixture Fee 1 EACH in Dextrose 5% in Water 100 ML IVPB SCH (09:15)
--- NOTE | 2017-10-11 10:45 | PQF ---
CLINICAL DOCUMENTATION IMPROVEMENT CLARIFICATION FORM: ICD-10 Updated PLEASE DO AN ADDENDUM TO THE PROGRESS NOTE WITH ANY DOCUMENTATION UPDATES OR ADDITIONS AND CARRY THROUGH TO DC SUMMARY. THANK YOU. DATE: 10/11 ATTN: DR. Jaret PULIDO Please exercise your independent, professional judgment in responding to the clarification form. Clinical indicators are provided on the bottom of this form for your review. Diagnosis: ACUTE ON CHRONIC DIASTOLIC CHF Present on Admission (POA): [ x ] Yes [ ] No [ ] Unable to determine Diagnosis: ACUTE HYPOXIC RESPIRATORY FAILURE Present on Admission (POA): [ ] Yes [ ] No [ x ] Unable to determine CLINICAL INDICATORS - SIGNS / SYMPTOMS / LABS ER PHYSICIAN DOCUMENTATION 10/07: SHORTNESS OF BREATH INTERMITTENT X3 DAYS 10/07 CXR: PULMONARY VASCULAR CONGESTION IS SEEN; SMALL PLEURAL EFFUSIONS EP CONSULT 10/09: CXR W/SMALL L SIDED PLEURAL EFFUSION ATTENDING PN 10/09: SOB ON EXERTION - WILL MONITOR CLOSELY- LIKELY FROM RVR, WILL CHECK FOR PE CT CHEST/THORAX: BIBASILAR LUNG CONSOLIDATION MAY REFLECT ASPIRATION PNA OR PNA ; BILATERAL MODERATE TO LARGE PLEURAL EFFUSION; NO PE PULMONOLOGY PN 10/10: ACUTE HYPOXIC RESPIRATORY FAILURE; ACUTE ON CHRONIC DIASTOLIC CHF - GIVE LASIX ATTENDING PN 10/10: ACUTE EXACERBATION OF CHF, UNSPECIFIED, ELEVATED BNP ECHO: EF 35-40%, L ATRIUM SEVERELY DILATED, L PLEURAL EFFUSION RISK FACTORS: AFLUTTER W/RVR L PLEURAL EFFUSION ELEVATED BNP (1897, 10/10) SHORTNESS OF BREATH ON ADMIT PERIPHERAL EDEMA 1+ ON ADMIT TREATMENT: CARDIOLOGY CONSULT PULMONOLOGY CONSULT SUPPLEMENTAL OXYGEN IV LASIX (10/10 - PRESENT) ECHO THANK YOU! Yazmin (This form is maintained as a part of the permanent medical record) 2014 [employer]. All Rights Reserved Yazmin Murdock RN, BSN [email or web address] Office: [phone] [facility]
--- NOTE | 2017-10-11 10:56 | PDOC.CTH ---
<Brionna Bustamante - Last Filed: 10/11/17 10:54> Cardiology Progress Note - Subjective The pt seen and examined. No overnight events. No cardiac complaints. She cont. SOB, but no longer having BLE edema. Cont. chronic fatigue. Explained her Echo result and discussed current and future tx plans with the pt. She voiced understanding. - Objective Vital Signs Temp Pulse Resp BP Pulse Ox 10/11/17 08:07 111 H 10/11/17 07:38 97.7 F 111 H 16 127/90 96 10/11/17 04:33 98.7 F 116 H 20 115/72 95 10/11/17 00:00 97.8 F 104 H 22 H 108/70 97 Weight 143 lb 10/10/17 10/11/17 10/12/17 06:59 06:59 06:59 Intake Total 480 1000 Output Total 3250 Balance 480 -2250 - Physical Examination General/Neuro: alert & oriented x3 Neck: no JVD present Lungs: other: (coarses and diminished at bases) Heart: other: (irregular) Abdomen: soft Extremities: other: (no Edema) - Telemetry Telemetry Rhythm: Afib HR 90-100s - Labs Result Diagrams: 10/11/17 07:10 10/11/17 07:10 Troponin/CKMB CK-MB (CK-2) 4.8 ng/mL (0-6.6) 10/07/17 15:55 Troponin I Less than 0.010 ng/mL (< 0.028) 10/07/17 15:55 - Assessment/Plan 1. Afib. with RVR with S/p TEENA/cardioversion - back to Afib/Aflutter with RVR on 10/10/17. Start Amiodarone drip from this AM. cont. to monitor 2. Acute CHF - no more BLE edema with Lasix IV BID and spironolactone. Start lisinopril 2.5mg daily. May start BBlocker when her VS is stable. 3. Severe MR - Possible MVR as outpt if her condition is stable. 4. COPD/Asthma - asthma as a child. Sees pulmonology. 3. HTN - Stop Norvasc and changes to Lisinopril 2.5mg daily for HTN and CHF management. 4. GERD - may be contributing to cough and SOB. Stable at this time. MAR reviewed * Echo on 10/10/17 showed EF 35-40%, severe dilated RV, severe dilated LA, normal RA, mild TR, Lt plural effusion, small pericardial effusion, and severe MR. Possible MVR as outpt. Review of Systems - Review of Systems Constitutional: reports: see HPI EENTM: reports: no symptoms reported Respiratory: reports: see HPI Cardiac (ROS): reports: no symptoms reported ABD/GI: reports: no symptoms reported : reports: no symptoms reported Musculoskeletal: reports: no symptoms reported <Darrion Steven - Last Filed: 10/11/17 17:56> Cardiology Progress Note - Objective Vital Signs Temp Pulse Resp BP Pulse Ox 10/11/17 15:25 97.6 F 86 16 90/62 94 L 10/11/17 11:43 97.8 F 91 14 101/68 97 10/11/17 11:27 111 H 10/11/17 08:07 111 H 10/11/17 08:00 97.7 F 111 H 16 96 10/11/17 07:38 97.7 F 111 H 16 127/90 96 Weight 143 lb 10/10/17 10/11/17 10/12/17 06:59 06:59 06:59 Intake Total 480 1000 Output Total 3250 Balance 480 -2250 - Labs Result Diagrams: 10/11/17 07:10 10/11/17 07:10 Troponin/CKMB CK-MB (CK-2) 4.8 ng/mL (0-6.6) 10/07/17 15:55 Troponin I Less than 0.010 ng/mL (< 0.028) 10/07/17 15:55 - Assessment/Plan Pt. was seen and eval. by me. i agree with the assessment by the SUSPENSION CORD TIER. Appreciate the help from EP. I spoke with in [place] and he agrees to accept the pt. in transfer to [facility] for MV repair or replacement. The MV will likely need to be addressed inorder to deal with the atrial fibrillation.
[2017-10-11 11:22] LABS: ALT (SGPT) 40 U/L (8-55); AST (SGOT) 39 U/L (5-34); Albumin 3.8 g/dL (3.4-4.8); Alkaline Phosphatase 45 U/L (40-150); Bilirubin, Direct 0.6 mg/dL (0.1-0.3); Bilirubin, Total 1.5 mg/dL (0.2-1.2); Magnesium 1.9 mg/dL (1.6-2.6); Protein, Total 5.9 g/dL (6.0-8.3)
[2017-10-11] MEDS ORDERED: Lisinopril 2.5 MG TAB PO SCH (11:30)
--- NOTE | 2017-10-11 11:50 | PDOC.PN ---
- Subjective Encounter Start Date: 10/11/17 Encounter Start Time: 08:20 Subjective: no c/o palp allthough her heart rate is around 140 -: no chest pain or sob - Objective Resuscitation Status: Resuscitation Status FULL:Full Resuscitation MAR Reviewed: Yes Vital Signs & Weight: Vital Signs (12 hours) Temp Pulse Resp BP Pulse Ox 10/11/17 11:43 97.8 F 91 14 101/68 97 10/11/17 11:27 111 H 10/11/17 08:07 111 H 10/11/17 08:00 97.7 F 111 H 16 96 10/11/17 07:38 97.7 F 111 H 16 127/90 96 10/11/17 04:33 98.7 F 116 H 20 115/72 95 10/11/17 00:00 97.8 F 104 H 22 H 108/70 97 Weight Weight 143 lb I&O: 10/10/17 10/11/17 10/12/17 06:59 06:59 06:59 Intake Total 480 1000 Output Total 3250 Balance 480 -2250 Result Diagrams: 10/11/17 07:10 10/11/17 07:10 Phys Exam - Physical Examination HEENT: PERRLA, moist MMs Neck: no JVD, supple Respiratory: no wheezing, no rales Cardiovascular: no significant murmur, irregular Gastrointestinal: soft, no distention, positive bowel sounds Musculoskeletal: no edema, pulses present Neurological: non-focal, moves all 4 limbs Psychiatric: normal affect, A&O x 3 Dx/Plan (1) Afib Code(s): I48.91 - UNSPECIFIED ATRIAL FIBRILLATION Status: Acute Qualifiers: Atrial fibrillation type: persistent Qualified Code(s): I48.1 - Persistent atrial fibrillation (2) Acute exacerbation of CHF (congestive heart failure) Code(s): I50.9 - HEART FAILURE, UNSPECIFIED Status: Acute Qualifiers: Heart failure type: systolic Qualified Code(s): I50.23 - Acute on chronic systolic (congestive) heart failure Comment: ef of 35% (3) COPD (chronic obstructive pulmonary disease) Status: Chronic (4) HTN (hypertension) Code(s): I10 - ESSENTIAL (PRIMARY) HYPERTENSION Status: Chronic Qualifiers: Hypertension type: essential hypertension Qualified Code(s): I10 - Essential (primary) hypertension - Plan failed cardioversion with afib with rvr, started on amiodarone today -: on lasix 20mg iv q12h, asp, bystolic, spironolactone -: ambulate as tolerated -: dc plan when rvr is controlled -: is on lovenox 60mg sc q12h * . Review of Systems - Medications/Allergies Allergies/Adverse Reactions: Allergies Allergy/AdvReac Type Severity Reaction Status Date / Time SELMA Inhibitors Allergy Verified 10/11/17 11:28 Sulfa (Sulfonamide Allergy Verified 10/19/12 18:56 Antibiotics) Medications: Current Medications Acetaminophen (Tylenol) 650 mg PO Q4H PRN PRN Reason: Headache/Fever or Pain Hydrocodone Bitart/Acetaminophen ([place] 10/325) 1 tab PO Q4HR PRN PRN Reason: Pain Hydrocodone Bitart/Acetaminophen ([place] 5/325) 1 tab PO Q4H PRN PRN Reason: Moderate Pain (4-6) Albuterol/Ipratropium (Duoneb) 3 ml NEB [id number] PRN PRN Reason: SOB &/or Wheezing Allopurinol (Zyloprim) 200 mg PO DAILY [facility] Last Admin: 10/11/17 08:06 Dose: 200 mg Aspirin (Ecotrin) 81 mg PO HS [facility] Last Admin: 10/10/17 20:18 Dose: 81 mg Enoxaparin Sodium (Lovenox) 60 mg SC 0900,2100 [facility] Last Admin: 10/11/17 08:06 Dose: 60 mg Famotidine (Pepcid) 20 mg PO BID [facility] Last Admin: 10/11/17 08:07 Dose: 20 mg Folic Acid (Folvite) 1 mg PO DAILY [facility] Last Admin: 10/11/17 08:07 Dose: 1 mg Furosemide (Lasix) 20 mg SLOW IVP 0600,1400 [facility] Last Admin: 10/11/17 05:48 Dose: 20 mg Diltiazem HCl 125 mg/Miscellaneous Medication 1 each/ Sodium Chloride 125 mls @ 10 mls/hr IVPB INF [facility] PRN Reason: Protocol Last Admin: 10/10/17 05:46 Dose: 125 mls Amiodarone HCl 450 mg/Miscellaneous Medication 1 each/ Dextrose/Water 259 mls @ 0 mls/hr IVPB INF MARLEN; As Directed PRN Reason: Protocol Last Admin: 10/11/17 09:44 Dose: 259 mls Lisinopril (Zestril) 2.5 mg PO DAILY [facility] Lisinopril (Zestril) 2.5 mg PO NOW [facility] Stop: 10/11/17 13:30 Last Admin: 10/11/17 11:27 Dose: Not Given Nebivolol (Bystolic) 5 mg PO DAILY [facility] Last Admin: 10/11/17 08:07 Dose: 5 mg Sodium Chloride (Flush - Normal Saline) 10 ml IVF Q12HR [facility] Last Admin: 10/11/17 08:07 Dose: 10 ml Sodium Chloride (Flush - Normal Saline) 10 ml IVF PRN PRN PRN Reason: Saline Flush Last Admin: 10/10/17 16:04 Dose: 10 ml Spironolactone (Aldactone) 25 mg PO DAILY [facility] Last Admin: 10/11/17 08:07 Dose: 25 mg Thiamine HCl (Thiamine) 100 mg PO DAILY [facility] Last Admin: 10/11/17 08:06 Dose: 100 mg
--- NOTE | 2017-10-11 13:43 | PDOC.CTH ---
<Anamaria Velasco - Last Filed: 10/11/17 13:29> Cardiology Progress Note - Subjective EP progress note: Patient seen and evaluated. No new cardiac concerns or complaints overnight. +SOB and fatigue -heart racing, palpitations, dizziness, or passing out. No stroke or stroke like symptoms - Objective Vital Signs Temp Pulse Resp BP Pulse Ox 10/11/17 11:43 97.8 F 91 14 101/68 97 10/11/17 11:27 111 H 10/11/17 08:07 111 H 10/11/17 08:00 97.7 F 111 H 16 96 10/11/17 07:38 97.7 F 111 H 16 127/90 96 10/11/17 04:33 98.7 F 116 H 20 115/72 95 Weight 143 lb 10/10/17 10/11/17 10/12/17 06:59 06:59 06:59 Intake Total 480 1000 Output Total 3250 Balance 480 -2250 - Physical Examination General/Neuro: alert & oriented x3, NAD Neck: carotid US brisk, no JVD present Lungs: CTA, unlabored respirations Heart: other: (irregularly irregular & rapid) Abdomen: NT/ND, soft - Telemetry Telemetry Rhythm: AF RVR - Labs Result Diagrams: 10/11/17 07:10 10/11/17 07:10 Troponin/CKMB CK-MB (CK-2) 4.8 ng/mL (0-6.6) 10/07/17 15:55 Troponin I Less than 0.010 ng/mL (< 0.028) 10/07/17 15:55 - Assessment/Plan 1. Atrial arrhythmias. Largely atrial fibrillation but multiple flutters seen as well. Asymptomatic with arrhythmia. Poor VR control. Sustaining at 120bpm, but seen as high as 160. Now off flecainide. Recommend IV amiodarone per protocol with bolus and transitioning to PO later. For now, rate control is the our goal. Could re-attempt CV with TEENA later, now that she is being started on AAD. Ultimately she will likely need PVAI/CTI RFA as an outpatient once medically stable. 2. Acute systolic heart failure- echo 10/10/17 found EF 35-40% as well as severe Mitral valve disease. Diuresing. Fairly well compensated now. 3. Severe MR- per cardiology 4. CHADS-VASC: 4 (age, female gender, hypertension,and heart failure). Ultimate need for salvage determiner OAC for CVA prophylaxis. Currently on lovenox. <Rose,Markell - Last Filed: 10/11/17 17:56> Cardiology Progress Note - Objective Vital Signs Temp Pulse Resp BP Pulse Ox 10/11/17 15:25 97.6 F 86 16 90/62 94 L 10/11/17 11:43 97.8 F 91 14 101/68 97 10/11/17 11:27 111 H 10/11/17 08:07 111 H 10/11/17 08:00 97.7 F 111 H 16 96 10/11/17 07:38 97.7 F 111 H 16 127/90 96 Weight 143 lb 10/10/17 10/11/17 10/12/17 06:59 06:59 06:59 Intake Total 480 1000 Output Total 3250 Balance 480 -2250 - Labs Result Diagrams: 10/11/17 07:10 10/11/17 07:10 Troponin/CKMB CK-MB (CK-2) 4.8 ng/mL (0-6.6) 10/07/17 15:55 Troponin I Less than 0.010 ng/mL (< 0.028) 10/07/17 15:55 Attending Addendum - Attending Addendum Date/Time: 10/11/17 [id number] I personally evaluated the patient and discussed the management with Ms Velasco. I agree with the History, Examination, Assessment and Plan documented above with any addition or exceptions noted below.
[2017-10-11] MEDS: Aspirin 81 mg Enteric Coated Tablet PO SCH (20:59)
[2017-10-11 21:34] VITALS: BP 116/72; TEMP 98.3
[2017-10-12] MEDS ORDERED: Lisinopril 2.5 MG TAB PO SCH (09:00)
--- NOTE | 2017-10-13 00:58 | DIS ---
DATE OF ADMISSION: 10/13/2017 DATE OF DISCHARGE: 10/13/2017 DISCHARGE DISPOSITION: To [facility] in [place]. PRIMARY DISCHARGE DIAGNOSES: Severe mitral regurgitation for percutaneous repair/replacement, persis tent atrial fibrillation, acute congestive heart failure exacerbation with ejection fraction of aroun d 35%. SECONDARY DISCHARGE DIAGNOSES: Chronic obstructive pulmonary disease, hypertension. PROCEDURES DONE DURING HOSPITALIZATION: Patient has had echo with 2D Doppler, transthoracic echo mikey wed EF of 35%-40%, left atrial dimension was 4.4 cm, severe mitral regurgitation, structurally normal aortic valve. CT angio chest done showed no central or segmental pulmonary embolus, [id number] ge pleural effusions bilaterally. She has had cardioversion done for atrial fibrillation with one at tempt at 200 joules done on 10/09/2017. H&H 13 and 41, platelet count 173. BNP 1897, albumin 4.0, B UN 13, creatinine 0.8. PT/INR 14 and 1.1 on the . INPATIENT CONSULTS: Dr. Steven for cardiology and Dr. Rose Guillaume for electrophysiology, Dr. Tanner maddox or pulmonology. DISCHARGE MEDICATIONS: Amiodarone drip to be continued enroute to [place], allopurinol 100 mg twice daily, aspirin 81 mg daily, Lovenox 60 mg subcutaneously twice daily, Synthroid 100 mcg every other d ay with 88 mcg daily, Singulair 10 mg p.o. at bedtime, Bystolic 5 mg daily, omeprazole 20 mg daily, s pironolactone 25 mg daily. ALLERGIES: SELMA INHIBITORS AND SULFA. BRIEF COURSE DURING HOSPITALIZATION: Patient initially got admitted on the 10/07/2017 with complaint s of shortness of breath. Her initial workup revealed atrial fibrillation with RVR and CHF exacerbat ion with elevated BNP and bilateral pleural effusions. Patient was gently diuresed during her stay h ere. She was on Cardizem drip initially and patient was taken for cardioversion. She had this succe ssfully done with [address] Steven and was briefly in sinus rhythm, but patient reverted back to atrial fibrillation with RVR. She had to be placed on amiodarone drip. Her echo with 2D Doppler revealed an EF of 35% and severe mitral regurgitation. Dr. Rose for electrophysiology was consulted . As patient's atrial fibrillation was recalcitrant, a decision was made to transfer her to [facility] for mitral valve repair likely percutaneous/replacement by Dr. Steven. She is being discharged on a miodarone drip and Lovenox subcutaneous is q.12 hourly 60 mg. She has otherwise remained hemodynamic ally stable. Please see a [id number] documentation on [employer] for the day of discharge. I have malina powers complete report to accepting Hospitalist at [facility] in [place].
== END 2017-10-11 22:27 | disposition short-term general hospital (02) | DRG 291 ==
LOC: ERS 15:43 → 2NO 20:00
PROVIDERS: ADMIT Family Medicine; ATTEND Family Medicine
PROC: 5A2204Z Restoration of Cardiac Rhythm, Single (ICD-10-PCS; principal; 2017-10-09)
DX: I11.0 Hypertensive heart disease with heart failure (principal); J96.01 Acute respiratory failure with hypoxia; I48.1 Persistent atrial fibrillation; I48.91 Unspecified atrial fibrillation; J44.9 Chronic obstructive pulmonary disease, unspecified; I34.0 Nonrheumatic mitral (valve) insufficiency; K21.9 Gastro-esophageal reflux disease without esophagitis; I50.33 Acute on chronic diastolic (congestive) heart failure; E03.9 Hypothyroidism, unspecified; G47.33 Obstructive sleep apnea (adult) (pediatric); R05 Cough; G47.00 Insomnia, unspecified; N20.0 Calculus of kidney; Z77.22 Contact with and (suspected) exposure to environmental tobacco smoke (acute) (chronic); Z79.82 Long term (current) use of aspirin
CPT/HCPCS: 36415; 71045; 71275; 80048; 80053; 80076; 80306; 81003; 81015; 82550; 82553; 83735; 83880; 84439; 84443; 84484; 85025; 85610; 93005; 93010; 93306; 93312; 93798; 94640; 94760; 96365; 96366; 96367; 96372; A4216; G8978-GP-CI; G8979-GP-CI; G8980-GP-CI; G8987-GO-CI; G8988-GO-CI; G8989-GO-CI; J0282; J1650; J1940; J2001; J2704; J3475; J7050; J7070; J7620